=== PATIENT | female | born 1960 | race Caucasian/White ===

== ENCOUNTER 2019-03-27 11:38 | Day surgery (SDC) | payer BC ==
--- NOTE | 2019-03-18 09:25 | HP ---
CC: Dr. Wallace Martinez* ADMISSION HISTORY AND PHYSICAL: DATE OF ADMISSION: 03/27/19 ATTENDING SURGEON: Dr. Jesse Luo* (STACIA Cardenas dictating). CHIEF COMPLAINT: Gallstones. HISTORY OF PRESENT ILLNESS: This is a 58-year-old female, who beginning in October began to note intermittent episodes of right upper quadrant discomfort. These have increased in both frequency and intensity in recent months. She described a sharp pain in the right upper quadrant, which sometimes radiates to the back. It has not been associated with nausea or vomiting, fever or chills, or particular timing or type of food. She has noted some increased constipation of late. There is no family history of gallbladder disease. She did undergo gallbladder ultrasound on 02/21/19, which showed what appeared to be a single 1.2 cm gallstone without significant gallbladder wall thickening, pericholecystic fluid, or common bile duct dilation. She was seen by Dr. Luo on 03/07/19. He has reviewed her workup and discussed with her the indications, risks, benefits, and alternatives of surgery. She understands the expected perioperative course and would like to proceed as scheduled with laparoscopic cholecystectomy. PAST MEDICAL HISTORY: Hypertension and history of cardiomyopathy (followed regularly by Dr. Garrido with serial echocardiograms, most recently in 2014 showing stable and/or improved disease with no further Cardiology followup recommended at that time. Her estimated ejection fraction was 55% to 60% with echo showing mild- to-moderate LV hypertrophy with normal LV systolic function) . She has history of tobacco abuse with COPD and excess alcohol intake as well as obesity. PAST SURGICAL HISTORY: Her previous surgeries include x2 both via low transverse incision, D and C, cervical conization, and cardiac catheterization (see above). CURRENT MEDICATIONS: 1. Losartan 100 mg once daily. 2. Metoprolol succinate extended release 50 mg one and one-half tablets b.i.d. 3. Aspirin 81 mg once daily (the patient will hold after her 03/22/19 dose). 4. Spiriva 18 mcg 1 inhalation once daily. 5. Albuterol MDI 2 puffs p.r.n. (uses daily). DRUG ALLERGIES: AZITHROMYCIN EYE DROPS (local reaction only). FAMILY HISTORY: Negative for anesthesia problems, bleeding or clotting disorders. SOCIAL HISTORY: The patient is . 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 She is an up to 1 pack per day smoker for 30 plus years. She has failed numerous attempts to quit, though still has that goal. She drinks between 3 and 6 beers per night (I did discuss with her the health benefits of both smoking cessation as well as decreased alcohol intake). She denies use of any other recreational drugs. REVIEW OF SYSTEMS: General: No recent constitutional symptoms or acute illnesses other than described in the HPI. HEENT: No problems reported. Cardiovascular: As above with no recent Cardiology followup, though no symptoms of chest pain or shortness of breath above her baseline. She is treated for hypertension. Respiratory: No recent exacerbations of her COPD. She continues to smoke. GI: As above per HPI. No lower GI symptoms other than some slight increase in constipation. She has undergone screening colonoscopy in the past with removal of polyps. She believes she is due for a repeat exam. She has not had any interval symptoms of concern. : No problems reported. Endocrine : No thyroid dysfunction or diabetes. 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 Neuro/Psych: Left carpal tunnel syndrome, pending further evaluation and/or recommendation after recent nerve conduction study. PHYSICAL EXAMINATION GENERAL: Well-nourished, mildly obese female, in no acute distress. VITAL SIGNS: Height 66.5 inches, weight 200 pounds (BMI 31.8). Temperature 98.4, blood pressure 138/86, pulse 90, respirations 16. HEENT: Pupils are equal, round, and reactive. EOMs intact. No conjunctival pallor or scleral icterus. Oropharynx: Teeth in fair to good repair, some missing teeth. Mucous membranes moist. NECK: No lymphadenopathy, thyromegaly, or masses. LUNGS: Clear to auscultation. No rales or wheezes. HEART: Regular rate and rhythm. No murmur noted. BREASTS: Not examined. ABDOMEN: Soft. Mild right upper quadrant tenderness. Negative Man sign. No palpable masses or organomegaly. GENITALIA: Not done. RECTAL: Not done. BACK: No spinous process or CVA tenderness. EXTREMITIES: No edema. NEUROLOGICAL: Grossly intact. Specific testing not performed. SKIN: Warm and dry. No suspicious rashes or lesions. IMPRESSION: Symptomatic cholelithiasis. PLAN: Laparoscopic cholecystectomy. STACIA CARDENAS [id number]/[facility] #: [id number] [facility]
[~2019-03-27 11:38] MED LIST: Buffered Lidocaine 1% SYRIN* 1 ML/SYRINGE INTRADERM ONE; Dexamethasone IV* 4 MG/ML 1 ML (4 MG) IV SLOW PU ONE; Famotidine IV* 10 MG/ML 2 ML (20 mg) IV ONE; Lactated Ringers 1000 ML Bag* 1,000 ML IV SCH
[2019-03-27] MEDS ORDERED: Dexamethasone IV* 4 MG/ML 1 ML (4 MG) ONE (12:12)
[2019-03-27] MEDS ORDERED: ceFAZolin 2 GM PREMIX in ORs 2 GM/50 ML BAG IVPB ONE (12:12)
[2019-03-27] MEDS ORDERED: Buffered Lidocaine 1% SYRIN* 1 ML/SYRINGE INTRADERM ONE (12:13)
[2019-03-27] MEDS ORDERED: Famotidine IV* 10 MG/ML 2 ML (20 mg) ONE ×2 (12:13→12:31)
[2019-03-27] MEDS ORDERED: Midazolam* 1 MG/ML 2 ML VIAL (2 MG) ONE (13:30)
[2019-03-27] MEDS ORDERED: fentaNYL* 50 MCG/ML 2 ML VIAL (100 MCG VIAL) ONE ×3 (13:30→16:08)
[2019-03-27] MEDS ORDERED: Lidocaine 2% PF * 5 ML VIAL ONE (13:32)
[2019-03-27] MEDS ORDERED: Propofol* 10 MG/ML 20 ML BTL ONE (13:32)
[2019-03-27] MEDS ORDERED: Ondansetron INJ* 2 MG/ML VIAL ONE (13:32)
[2019-03-27] MEDS ORDERED: Ketorolac INJ* 30 MG/ML 1 ML VIAL ONE (13:32)
[2019-03-27] MEDS ORDERED: Bupivacaine 0.25% W/EPI* 10 ML SDV ONE (13:54)
[2019-03-27] MEDS ORDERED: Sugammadex * 200 MG/2 ML VIAL IV PUSH ONE (14:43)
[2019-03-27] MEDS ORDERED: Rocuronium* 10 MG/ML VIAL ONE (14:44)
[2019-03-27] MEDS ORDERED: KETAMINE HCL* 50 MG/ML 10 ML VIAL ONE (15:32)
--- NOTE | 2019-03-27 15:56 | OP ---
Operative Report - Blank - Operative Report Date of Operation: 03/27/19 Note: Brief Operative Note Preop Dx: symptomatic cholelithiasis Postop Dx: same Procedure: laparoscopic cholecystectomy Anesthesia: GET Surgeon: Valerio Wrapper Layer: STACIA Ramírez; WILL Man Fluids: 500 mL LR EBL: < 50 mL Specimen: Gall bladder Drains: none Findings: dictated
[2019-03-27] MEDS ORDERED: hydrALAZINE IV* 20 MG/ML VIAL IV SLOW PU PRN (16:11)
[2019-03-27] MEDS ORDERED: DiMENhydriNATE IV* 50 MG/ML VIAL IV PUSH PRN (16:11)
[2019-03-27] MEDS ORDERED: Naloxone* 0.4 MG/ML 1 ML VIAL IV PRN (16:11)
[2019-03-27] MEDS ORDERED: fentaNYL* 50 MCG/ML 2 ML VIAL (100 MCG VIAL) IV PRN (16:11)
[2019-03-27] MEDS ORDERED: HYDROcodone/ACETAMIN 5-325 MG* 1 TAB PO PRN (16:42)
[2019-03-27] MEDS ORDERED: HYDROcodone/ACETAMIN 5-325 MG* 1 TAB ONE (16:56)
[2019-03-27 18:24] VITALS: BP 121/88
--- NOTE | 2019-03-29 11:07 | OP ---
CC: Dr. Wallace [facility]; [facility] OPERATIVE REPORT: DATE OF OPERATION: 03/27/19 - [facility] DATE OF : 64 SURGEON: Jesse Luo MD LAMP REPLACER: STACIA Ramírez ANESTHESIOLOGIST: Dr. Cui. ANESTHESIA: General anesthesia. PRE-OP DIAGNOSIS: Symptomatic cholelithiasis. POST-OP DIAGNOSIS: Symptomatic cholelithiasis. OPERATIVE PROCEDURE: Laparoscopic cholecystectomy. ESTIMATED BLOOD LOSS: Less than 50 cc. FLUIDS: 500 cc. SPECIMENS: Gallbladder. DESCRIPTION OF PROCEDURE: The patient was identified in the preoperative area, marked, brought to the operating room, and placed on the operating room table in a supine position. Preoperative antibiotics were given. Sequential devices were placed on bilateral lower extremities. General anesthesia was induced. The patient's abdomen was prepped and draped in a standard surgical fashion and a time- out was performed. Umbilical incision was made. The skin folds were elevated and a Veress needle inserted into the abdominal cavity, which was then allowed to insufflate to a pressure of 15 mmHg. This was removed and then the 5-mm Optiview trocar was inserted at the same incision. Review of the abdomen showed normal-appearing bowel and liver. We then placed the table in reverse Trendelenburg right side up positioning and placed a 12-mm trocar in the subxiphoid area, two 5 mm along the right costal margin. Next the gallbladder was identified. Fundus was elevated anteriorly and with blunt dissection swept off duodenum. Once it was swept down, we could see the body of the gallbladder. The infundibular region was grasped and retracted towards the right lower quadrant giving us a critical view with good vision of common bile duct. Next, we took the peritoneum off the lateral aspect of the gallbladder and off the medial aspect of the gallbladder. We doubly clipped the cystic duct and cystic artery after isolating them and removed the gallbladder from the liver bed. I did puncture the gallbladder with the grasper that this was held and minimal bile leakage was noted without the stone. The gallbladder was then placed in an endoscopic retrieval bag an brought out thorough the subxiphoid port site, passed off as specimen. Next, we reviewed the abdomen. I placed a gauze in the abdomen to mop up a bit of the bile and removed the gauze and looked at the cystic duct stump, cystic artery stump; there was no bleeding or bile leak. Next, we put the patient back to neutral. Trocars were removed under direct vision and all 4 skin incisions were reapproximated with 4-0 Monocryl subcuticular sutures followed by Steri-Strips and sterile dressing. The patient tolerated the procedure well , was woken up in the OR and transferred to the PACU in stable condition. [id number]/[facility] #: [id number] [facility]ENTERLinsey
== END 2019-03-27 18:00 | disposition home or self-care (01) ==
LOC: OR 11:38
PROVIDERS: ATTEND Surgery
DX: K80.10 Calculus of gallbladder with chronic cholecystitis without obstruction (principal); I10 Essential (primary) hypertension; J44.9 Chronic obstructive pulmonary disease, unspecified; I42.9 Cardiomyopathy, unspecified; Z72.0 Tobacco use; E66.9 Obesity, unspecified; Z68.32 Body mass index [BMI] 32.0-32.9, adult
CPT/HCPCS: 88304; J0690; J1100; J1885; J2250; J2405; J2704; J3010

== ENCOUNTER 2019-03-29 10:07 | Emergency (ER) | payer BC ==
[2019-03-29] MEDS ORDERED: Ondansetron INJ* 2 MG/ML VIAL IV ONE (10:19)
[2019-03-29] MEDS ORDERED: NS 0.9% 1000 ML** 1,000 ML IV ONE (10:19)
--- OUTSIDE RECORDS SUMMARY | 2019-03-29 10:21 | XMS REPORT | Continuity of Care Document ---
:1960 External Reference #:[id number] Author Name Kirstie Anders Care Team Providers Name Role Phone Wallace Martinez MD Primary Care Physician Unavailable Payers Date Identification Numbers Payment Provider Subscriber Effective: 2013 Policy Number: [id number] BS Facets Blanca Casillas PayID: [id number] [address] [address] [place] [address] Advance Directives Description No Information Available Problems Active Problems Provider Date Cardiomyopathy, unspecified Gus Garrido M.D., [facility], [facility] Onset: 08/26/2015 Tobacco user Gus Garrido M.D., [facility], [facility] Onset: 10/29/2013 Essential hypertension Gus Garrido M.D., [facility] Onset: 10/29/2013 Primary cardiomyopathy Gus Garrido M.D., [facility], [facility] Onset: 10/29/2013 Family History Date Family Member(s) Observation Comments General Cancer Social History Type Date Description Comments Sex Unknown Marital Status Lives With Spouse 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 Use Currently consumes alcohol Tobacco Use Start: Unknown Patient is a current 1/2 pack per day smoker, smokes every day Recreational Drug Use Denies Drug Use Smoking Status Reviewed: 03/29/19 Patient is a current 1/2 pack per day smoker, smokes every day Exercise Type/Frequency Exercises sporadically Allergies, Adverse Reactions, Alerts Active Allergies Reaction Severity Comments Date Zithromax swelling Zithromax eye drops 10/29/2013 Medications Active Medications SIG Qnty Indications Ordering Date Provider Hydrocodone-Acetamin 1 or 2 tablets by 14taclif K80.10 Pao Hobbs, ophen mouth every 4-6 MD 5-325mg Tablets hours as needed for moderately severe pain Aspirin 1 po qd 100tabs Unknown 81mg Tablets Metoprolol Succinate 1 and 1/2 tabs po Wallace Martinez, ER bid MD 50mg Tablets ER 24HR Losartan Potassium 1 po qd Wallace Martinez, MD 100mg Tablets Spiriva Handihaler 1 unit inhalation Unknown daily 18mcg Capsules Albuterol Sulfate Inhale 2 Puffs By Unknown HFA Mouth Every 4 To 6 108(90Base) Hours as Needed mcg/Act Aerosol For Wheeze/Shortness Of Breath/Cough History Medications Furosemide 1/2 pill po daily 30tabs Gus Garrido, 09/25/2012 - 20mg M.DFunmi, FACC, Unknown Tablets FSCAI Xopenex HFA 1 puff qd Unknown - Unknown 45mcg/Act Aerosol Wellbutrin SR 1 by mouth bid Unknown - 100mg Unknown Tablets ER 12HR Depo-Provera intramuscular q3mon Unknown - Unknown 400mg/ml Suspension Albuterol Sulfate 1 application every 4 Unknown - hours as needed Unknown (2.5mg/3ML) 0.083% Nebulizer Immunizations Description No Information Available Vital Signs Date Vital Result Comment 03/29/2019 9:37am Heart Rate 90 /min BP Systolic Sitting 108 mmHg BP Diastolic Sitting 72 mmHg Respiratory Rate 18 /min Body Temperature 97.1 F 03/15/2019 1:01pm Height 66.5 inches 5'6.50" Weight 200.00 lb Heart Rate 90 /min BP Systolic Sitting 138 mmHg BP Diastolic Sitting 86 mmHg Respiratory Rate 16 /min Body Temperature 98.4 F BMI (Body Mass Index) 31.8 kg/m2 03/07/2019 1:29pm Height 66.5 inches 5'6.50" Weight 200.00 lb Heart Rate 80 /min BP Systolic 132 mmHg BP Diastolic 84 mmHg Respiratory Rate 18 /min Body Temperature 99.0 F BMI (Body Mass Index) 31.8 kg/m2 08/26/2015 2:15pm Height 66.5 inches 5'6.50" Weight 199.00 lb Heart Rate 94 /min 96 BP Systolic Sitting 122 mmHg right arm, reg cuff BP Diastolic Sitting 90 mmHg right arm, reg cuff BP Systolic Standing 120 mmHg right arm, reg cuff BP Diastolic Standing 90 mmHg right arm, reg cuff Respiratory Rate 20 /min BMI (Body Mass Index) 31.6 kg/m2 Ejection Fraction 55-60% 07/28/15 05/20/2015 2:14pm Height 66.5 inches 5'6.50" Weight 200.25 lb w/shoes Heart Rate 90 /min 100 BP Systolic Sitting 128 mmHg Ra reg cuff BP Diastolic Sitting 90 mmHg Ra reg cuff BP Systolic Standing 144 mmHg Ra reg cuff BP Diastolic Standing 100 mmHg Ra reg cuff Respiratory Rate 18 /min BMI (Body Mass Index) 31.8 kg/m2 Ejection Fraction 50 echo 01/31/12 08/12/2014 2:42pm Height 66.5 inches 5'6.50" Weight 181.00 lb Heart Rate 84 /min 96 BP Systolic Sitting 126 mmHg right arm, reg cuff BP Diastolic Sitting 86 mmHg right arm, reg cuff BP Systolic Standing 126 mmHg right arm, reg cuff BP Diastolic Standing 82 mmHg right arm, reg cuff Respiratory Rate 16 /min BMI (Body Mass Index) 28.8 kg/m2 10/29/2013 2:06pm Height 66.5 inches 5'6.50" Weight 184.00 lb Heart Rate 9296 /min BP Systolic Sitting 114 mmHg LA reg cuff BP Diastolic Sitting 88 mmHg LA reg cuff BP Systolic Standing 108 mmHg LA BP Diastolic Standing 82 mmHg LA Respiratory Rate 16 /min BMI (Body Mass Index) 29.3 kg/m2 Results Test Date Facility Test Result H/L Range Note Laboratory test 10/09/2012 [facility] B Type 26.0 pg/mL 0- [address] [place] [address] Peptide [phone] Basic Metabolic 10/09/2012 [facility] Sodium 136 mmol/L 133- [address] [place], [place] [id number] [phone] Potassium 4.2 mmol/L 3.5-5.0 Chloride 103 mmol/L 101-111 Co2 Carbon Dioxide 27.0 mmol/L 22-32 Anion Gap 6.0 mmol/L 2-11 Glucose 97 mg/dL 70-100 Blood Urea Nitrogen 19 mg/dL 6-24 Creatinine 0.80 mg/dL 0.50-1.40 BUN/Creatinine Ratio 23.8 High 8-20 Calcium 9.5 mg/dL 8.1-9.9 Egfr Non- 75.9 >60 Egfr 97.6 >60 1 Laboratory test 09/12/2012 [facility] Free T4 0.84 NG/ML 0.61 -1.[address] [place] [address] [phone] T4 7.5 g/mL 5.0-12.0 TSH (Thyroid Stimulating Horm) 1.56 MIU/ML 0.34-5.60 1 Because ethnic data is not always readily available, this report includes an eGFR for both -Americans and non- Americans. The National Kidney Disease Education Program (NKDEP) does not endorse the use of the MDRD equation for patients that are not between the ages of 18 and 70, are , have extremes of body size, muscle mass, or nutritional status, or are non- or non-. According to the National Kidney Foundation, irrespective of diagnosis, the stage of the disease is based on the level of kidney function: Stage Description GFR(mL/min/1.73 m(2)) 1 Kidney damage with normal or decreased GFR 90 2 Kidney damage with mild decrease in GFR 60-89 3 Moderate decrease in GFR 30-59 4 Severe decrease in GFR 15-29 5 Kidney failure <15 (or dialysis) Procedures Date Code Description Status 07/28/2015 14631 ECHO Transthorasic Realtime 2D W Doppler & Color Flow Hosp Completed 07/09/2015 64213 ECHO Transthorasic Realtime 2D W Doppler & Color Flow Hosp Completed 05/20/2015 77282 EKG Tracing & Interpretation Completed 08/12/2014 94185 EKG Tracing & Interpretation Completed 10/29/2013 59217 EKG Tracing & Interpretation Completed 05/09/2013 46446 EKG Tracing & Interpretation Completed 09/25/2012 55924 EKG Tracing & Interpretation Completed Encounters Type Date Location Provider Dx Diagnosis Office Visit 03/07/2019 [facility] Jesse Luo, K80.10 [facility]p [facility] J[facility], FACS gallbladder w chronic cholecyst w/o obstruction Office Visit 08/26/2015 [facility] Gus Garrido, I42.9 Cardiomyopathy, 2:20p [facility] AT [facility] Kathleen, FACC, unspecified FSCAI I10 Essential (primary) hypertension F17.210 Nicotine dependence, cigarettes, uncomplicated Office Visit 05/20/2015 2:40p [facility] Gus Garrido, 401.9 Hypertension Of [facility] AT [facility] M.D., [facility], Unspec FSCAI 425.4 Cardiomyopathy Other Prim 305.1 Tobacco Use Disorder Office Visit 08/12/2014 2:40p [place] [facility]arrido, 425.4 Cardiomyopathy Other [facility] Of M.Linsey., [facility], Prim [facility] AT [facility] FSCAI 401.9 Hypertension Unspec 305.1 Tobacco Use Disorder Office Visit 10/29/2013 2:00p [place] Gus [facility]arrido, 425.4 Cardiomyopathy Other Cardiology Of M.D., [facility], [facility] FSCAI 401.9 Hypertension Unspec 305.1 Tobacco Use Disorder Office Visit 05/09/2013 3:15p [place] [facility], 425.4 Cardiomyopathy Other Cardiology Of M.Linsey., [facility], [facility] FSCAI 401.9 Hypertension Unspec Office Visit 09/25/2012 3:15p [place] Gus Garrido 425.4 Cardiomyopathy Other Cardiology Of M.Linsey., [facility], [facility] FSCAI 401.9 Hypertension Unspec Plan of Treatment Future Appointment(s):04/04/2019 1:00 pm - STACIA Lindsay at [facility]03/29/2019 - Gael Sinclair MD, FACSR11.2 Nausea with vomiting, unspecifiedRecommendations:Go to the [facility] Calculus of gallbladder with chronic cholecystitis without oI42.9 Cardiomyopathy, [id number] Essential (primary) hypertension
--- OUTSIDE RECORDS SUMMARY | 2019-03-29 10:21 | XMS REPORT | Continuity of Care Document ---
:1960 External Reference #:[id number] Author Name Kirstie Anders Care Team Providers Name Role Phone Wallace Martinez MD Primary Care Physician Unavailable Payers Date Identification Numbers Payment Provider Subscriber Effective: 2013 Policy Number: [id number] BS Facets Blanca Casillas PayID: [id number] [address] [address] [place] [address] Advance Directives Description No Information Available Problems Active Problems Provider Date Cardiomyopathy, unspecified Gus Garrido M.D., [facility], [facility] Onset: 08/26/2015 Tobacco user Gus Garrido M.D., [facility] Onset: 10/29/2013 Essential hypertension Gus Garrido M.D., [facility] Onset: 10/29/2013 Primary cardiomyopathy Gus Garrido M.D., [facility] Onset: 10/29/2013 Family History Date Family Member(s) Observation Comments General Cancer Social History Type Date Description Comments Sex Unknown Marital Status 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 B Type 26.0 pg/mL 0- [address] [address] Peptide [phone] Basic Metabolic 10/09/2012 [facility] Sodium 136 mmol/L 133- [address] [place] [address] [phone] Potassium 4.2 mmol/L 3.5-5.0 Chloride 103 mmol/L 101-111 Co2 Carbon Dioxide 27.0 mmol/L 22-32 Anion Gap 6.0 mmol/L 2-11 Glucose 97 mg/dL 70-100 Blood Urea Nitrogen 19 mg/dL 6-24 Creatinine 0.80 mg/dL 0.50-1.40 BUN/Creatinine Ratio 23.8 High 8-20 Calcium 9.5 mg/dL 8.1-9.9 Egfr Non- 75.9 >60 Egfr 97.6 >60 1 Laboratory test 09/12/2012 [facility] Free T4 0.84 NG/ML 0.61 -1.[address] [place] [address] [phone] T4 7.5 g/mL 5.0-12.0 TSH (Thyroid Stimulating [...] dialysis) Procedures Date Code Description Status 07/28/2015 93721 ECHO Transthorasic Realtime 2D W Doppler & Color Flow Hosp Completed 07/09/2015 29118 ECHO Transthorasic Realtime 2D W Doppler & Color Flow Hosp Completed 05/20/2015 90687 EKG Tracing & Interpretation Completed 08/12/2014 63628 EKG Tracing & Interpretation Completed 10/29/2013 63696 EKG Tracing & Interpretation Completed 05/09/2013 12784 EKG Tracing & Interpretation Completed 09/25/2012 74673 EKG Tracing & Interpretation Completed Encounters Type Date Location Provider Dx Diagnosis Office Visit 03/07/2019 [facility] Jesse Luo, K80.10 [facility]p [facility]ARA, FACS gallbladder w chronic cholecyst w/o obstruction Office Visit 08/26/2015 [facility] Gus Garrido, I42.9 Cardiomyopathy, 2:20p [facility] AT [facility] M.DFunmi, FACC, unspecified FSCAI I10 Essential (primary) hypertension F17.210 Nicotine dependence, cigarettes, uncomplicated Office Visit 05/20/2015 2:40p [facility] Gus Garrido, 401.9 Hypertension Of 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 AT [facility] M.D., FAC, Unspec FSCAI 425.4 Cardiomyopathy Other Prim 305.1 Tobacco Use Disorder Office Visit 08/12/2014 2:40p [place] Garr[facility], 425.4 Cardiomyopathy Other Cardiology Of M.D., FACC, Prim 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 AT [facility] FSCAI 401.9 Hypertension Unspec 305.1 Tobacco Use Disorder Office Visit 10/29/2013 2:00p [place] Garrido, 425.4 Cardiomyopathy Other Cardiology Of M.D., FAC, Prim [facility] FSCAI 401.9 Hypertension Unspec 305.1 Tobacco Use Disorder Office Visit 05/09/2013 3:15p [place] Garrido, 425.4 Cardiomyopathy Other Cardiology Of M.D., [facility], Prim [facility] FSCAI 401.9 Hypertension Unspec Office Visit 09/25/2012 3:15p [place] Garrido, 425.4 Cardiomyopathy Other Cardiology Of M.D., [facility], Prim [facility] FSCAI 401.9 Hypertension Unspec Plan of Treatment Future Appointment(s):04/04/2019 1:00 pm - STACIA Lindsay at [facility]03/27/2019 7:30 am - Mala Ortiz NP at [facility]03/27/2019 7:30 am - Jesse Luo MD, FACS at [facility]03/15/2019 - Bari Ramírez, PAK80.10 Calculus of gallbladder with chronic cholecystitis without oNew Medication:Hydrocodone- Acetaminophen 5-325 mg - 1 or 2 tablets by mouth every 4-6 hours as needed for moderately severe painZ01.818 Encounter for other preprocedural examination
--- OUTSIDE RECORDS SUMMARY | 2019-03-29 10:21 | XMS REPORT | Continuity of Care Document ---
:1960 External Reference #:[id number] Author Name Kirstie Anders Care Team Providers Name Role Phone Wallace Martinez MD Primary Care Physician Unavailable Payers Date Identification Numbers Payment Provider Subscriber Effective: 2013 Policy Number: [id number] [employer] Blanca Casillas PayID: [id number] [address] [address] [place] [address] Advance Directives Description No Information Available Problems Active Problems Provider Date Cardiomyopathy, unspecified Gus Garrido M.D., [facility], [facility] Onset: 08/26/2015 Tobacco user Gus Garrido M.D., [facility] Onset: 10/29/2013 Essential hypertension Gus Garrido M.D., [facility], [facility] Onset: 10/29/2013 Primary cardiomyopathy Gus Garrido M.D., [facility] Onset: 10/29/2013 Family History Date Family Member(s) Observation Comments General Cancer Social History Type Date Description Comments Sex Unknown Marital Status Lives With Spouse Occupation [employer] ETOH Use Currently consumes alcohol Tobacco Use Start: Unknown Patient is a current 1/2 pack per day smoker, smokes every day Recreational Drug Use Denies Drug Use Smoking Status Reviewed: 03/07/19 Patient is a current 1/2 pack per day smoker, smokes every day Exercise Type/Frequency Exercises sporadically Allergies, Adverse Reactions, Alerts Active Allergies Reaction Severity Comments Date Zithromax swelling 10/29/2013 Medications Active Medications SIG Qnty Indications Ordering Date Provider Aspirin 1 po qd 100tabs Unknown 81mg Tablets Metoprolol 1 and 1/2 tabs po Wallace Martinez, Succinate ER bid MD 50mg Tablets ER 24HR Losartan Potassium 1 po qd Michelle Wallace, MD 100mg Tablets Spiriva Handihaler 1 unit inhalation Unknown daily 18mcg Capsules Albuterol Sulfate 1 application every Unknown 4 hours as needed (2.5mg/3ML) 0.083% Nebulizer History Medications Furosemide 1/2 pill po daily 30tabs Gus Harvinderviky, 09/25/2012 - 20mg M.D., FACC, FSCAI Unknown Tablets Xopenex HFA 1 puff qd Unknown - 45mcg/Act Unknown Aerosol Wellbutrin SR 1 by mouth bid Unknown - 100mg Unknown Tablets ER 12HR Depo-Provera intramuscular q3mon Unknown - 400mg/ml Unknown Suspension Immunizations Description No Information Available Vital Signs Date Vital Result Comment 03/07/2019 1:29pm Height 66.5 inches 5'6.50" Weight [...] Result H/L Range Note Laboratory test 10/09/2012 [facility] B Type 26.0 pg/mL 0- [address] [place] [address] Peptide [phone] Basic Metabolic 10/09/2012 [facility] Sodium 136 mmol/L 133- 145 Panel [address] [place] [address] [phone] Potassium 4.2 mmol/L 3.5-5.0 Chloride 103 mmol/L 101-111 Co2 Carbon Dioxide 27.0 mmol/L 22-32 Anion Gap 6.0 mmol/L 2-11 Glucose 97 mg/dL 70-100 Blood Urea Nitrogen 19 mg/dL 6-24 Creatinine 0.80 mg/dL 0.50-1.40 BUN/Creatinine Ratio 23.8 High 8-20 Calcium 9.5 mg/dL 8.1-9.9 Egfr Non- 75.9 >60 Egfr 97.6 >60 1 Laboratory test 09/12/2012 [facility] Free T4 0.84 NG/ML 0.61 -1.24 finding [address] [place] [address] [phone] T4 7.5 g/mL 5.0-12.0 TSH (Thyroid Stimulating [...] dialysis) Procedures Date Code Description Status 07/28/2015 22645 ECHO Transthorasic Realtime 2D W Doppler & Color Flow Hosp Completed 07/09/2015 31775 ECHO Transthorasic Realtime 2D W Doppler & Color Flow Hosp Completed 05/20/2015 99412 EKG Tracing & Interpretation Completed 08/12/2014 17973 EKG Tracing & Interpretation Completed 10/29/2013 96882 EKG Tracing & Interpretation Completed 05/09/2013 91454 EKG Tracing & Interpretation Completed 09/25/2012 24805 EKG Tracing & Interpretation Completed Encounters Type Date Location Provider Dx Diagnosis Office Visit 08/26/2015 [facility] Gus Garrido, I42.9 Cardiomyopathy, 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 [facility] [place]., FACC, unspecified FSCAI I10 Essential (primary) hypertension F17.210 Nicotine dependence, cigarettes, uncomplicated Office Visit 05/20/2015 2:40p [facility] Garrido, 401.9 Hypertension Of Revenue Director [place] [facility]., FACC, Unspec FSCAI 425.4 Cardiomyopathy Other Prim 305.1 Tobacco Use Disorder Office Visit 08/12/2014 2:40p Renzo Garrido 425.4 Cardiomyopathy Other Cardiology Of M.Linsey., FAC, Prim [facility] [place] [facility] FSCAI 401.9 Hypertension Unspec 305.1 Tobacco Use Disorder Office Visit 10/29/2013 2:00p Renzo Garrido 425.4 Cardiomyopathy Other Cardiology Of M.Linsey., FAC, Prim Revenue Director FSCAI 401.9 Hypertension Unspec 305.1 Tobacco Use Disorder Office Visit 05/09/2013 3:15p Renzo Garriod 425.4 Cardiomyopathy Other Cardiology Of M.Linsey., FAC, Prim Revenue Director FSCAI 401.9 Hypertension Unspec Office Visit 09/25/2012 3:15p Renzo Garrido 425.4 Cardiomyopathy Other Cardiology Of Kathleen, [facility], Prim Revenue Director FSCAI 401.9 Hypertension Unspec Plan of Treatment Future Appointment(s):04/04/2019 1:00 pm - STACIA Lindsay at [facility]03/15/2019 1:00 pm - STACIA Lindsay at [facility]03/27/2019 7:30 am - Mala Ortiz, DARWIN at [facility]03/27/2019 7:30 am - Jesse Luo MD, FACS at [facility]03/07/2019 - Jesse Luo MD, FACSK80.10 Calculus of gallbladder with chronic cholecystitis without oFollow up:operating room
[2019-03-29 10:37] LABS: ABS Basophils 0.1 10^3/ul (0-0.2); ABS Lymphocytes 1.4 10^3/ul (1.0-4.8); ABS Monocytes 0.9 10^3/ul (0-0.8); ABS Neutrophils 10.6 10^3/ul (1.5-7.7); Eosinophil % 0.3 %; Hematocrit 39 % (35-47); Hemoglobin 13.7 g/dL (12.0-16.0); Lymphocyte % 10.5 %; Mean Corpuscular HGB Conc 35 g/dL (31-36); Mean Corpuscular Hemoglobin 32 pg (27-31); Mean Corpuscular Volume 92 fL (80-97); Nucleated Red Blood Cells % 0.1; Platelet Count 384 10^3/uL (150-450); Red Blood Count 4.27 10^6 /uL (3.70-4.87); Red Cell Distribution Width 13 % (10.5-15)
--- NOTE | 2019-03-29 10:41 | ED ---
GI/ HPI - HPI Summary HPI Summary: This patient is a 58 year old F presenting to ED with a chief complaint of N/V since yesterday afternoon. The patient rates the pain 0/10 in severity. Symptoms aggravated by PO. Symptoms alleviated by nothing. She has not taken any pain medications since yesterday. She also states that she hasnt been in much pain at all. PMHx of cholecystectomy (done by Dr. Luo on 03/27/19). She was just seen by Dr. Luo and he sent her down to the ED. - History of Current Complaint Chief Complaint: EDNauseaVomitDiarrh Time Seen by Provider: 03/29/19 10:14 Stated Complaint: NAUSEA/CANT EAT/VOMITING PER PT Hx Obtained From: Patient Onset/Duration: Started Days Ago - yesterday afternoon, Still Present Timing: Constant, Lasting Days Current Severity: None Pain Intensity: 0 Associated Signs and Symptoms: Positive: Nausea, Vomiting, Other: - denies any pain Aggravating Factor(s): Food Alleviating Factor(s): Nothing - Allergy/Home Medications Allergies/Adverse Reactions: Allergies Allergy/AdvReac Type Severity Reaction Status Date / Time zithromax eye drops Allergy See Comment Uncoded 03/27/19 12:52 PMH/Surg Hx/FS Hx/Imm Hx Endocrine/Hematology History: Denies: Hx Diabetes Cardiovascular History: Reports: Hx Hypertension - ON DAILY MED Denies: Hx Congestive Heart Failure Comment Only: Other Cardiovascular Problems/Disorders - HX OF HEART CATH FEW YEARS AGO, ALL WAS OK Respiratory History: Reports: Other Respiratory Problems/Disorders - SMOKER, GETS SOB OCCASSIONALLY, USES INHALERS DAILY History: Denies: Hx Renal Disease Sensory History: Reports: Hx Contacts or Glasses - WILL WEAR GLASSES DAY OF SURGERY Opthamlomology History: Reports: Hx Contacts or Glasses - WILL WEAR GLASSES DAY OF SURGERY - Surgical History Surgery Procedure, Year, and Place: d/c [facility] [place]. 1998cervical cone laser ablation, [facility] [place]. 1989 & 1991 [facility] [place] [facility] Hx Anesthesia Reactions: No Infectious Disease History: No Infectious Disease History: Denies: Traveled Outside the [place] in Last 30 Days - Family History Known Family History: Positive: Other Family History: PE - mother - Social History Alcohol Use: Daily Alcohol Amount: USUALLY FEW DRINKS/ MOST EVENINGS Substance Use Type: Reports: None Smoking Status (MU): Heavy Every Day Tobacco Smoker Type: Cigarettes Amount Used/How Often: 1 PPD OR LESS 20 YRS Have You Smoked in the Last Year: Yes Review of Systems Positive: Other - denies any pain Positive: Vomiting, Nausea All Other Systems Reviewed And Are Negative: Yes Physical Exam - Summary Physical Exam Summary: VITAL SIGNS: Reviewed. GENERAL: Patient is a well-developed and nourished FEMALE who is lying comfortable in the stretcher. Patient is not in any acute respiratory distress. HEAD AND FACE: No signs of trauma. No ecchymosis, hematomas or skull depressions. No sinus tenderness. EYES: PERRLA, EOMI x 2, No injected conjunctiva, no nystagmus. EARS: Hearing grossly intact. Ear canals and tympanic membranes are within normal limits. MOUTH: Oral mucosa is dry. NECK: Supple, trachea is midline, no adenopathy, no JVD, no carotid bruit, no c- spine tenderness, neck with full ROM. CHEST: Symmetric, no tenderness at palpation LUNGS: Clear to auscultation bilaterally. No wheezing or crackles. CVS: Regular rate and rhythm, S1 and S2 present, no murmurs or gallops appreciated. ABDOMEN: Soft, non-tender. No signs of distention. No rebound no guarding, and no masses palpated. Bowel sounds are normal. EXTREMITIES: FROM in all major joints, no edema, no cyanosis or clubbing. NEURO: Alert and oriented x 3. No acute neurological deficits. Speech is normal and follows commands. SKIN: Dry and warm. Multiple small surgical scars which are with a little ecchymosis, without any signs of infection. Turgor of skin is increased. Triage Information Reviewed: Yes Vital Signs On Initial Exam: Initial Vitals Temp Pulse Resp BP Pulse Ox 97.6 F 110 16 105/79 97 03/29/19 10:08 03/29/19 10:08 03/29/19 10:08 03/29/19 10:08 03/29/19 10:08 Vital Signs Reviewed: Yes Diagnostics - Vital Signs Vital Signs Temp Pulse Resp BP Pulse Ox 03/29/19 10:08 97.6 F 110 16 105/79 97 - Laboratory Lab Results: Lab Results 03/29/19 Range/Units 10:30 WBC 13.0 H (3.5-10.8) 10^3/uL RBC 4.27 (3.70-4.87) 10^6 /uL Hgb 13.7 (12.0-16.0) g/dL Hct 39 (35-47) % MCV 92 (80-97) fL MCH 32 H (27-31) pg MCHC 35 (31-36) g/dL RDW 13 (10.5-15) % Plt Count 384 (150-450) 10^3/uL MPV 6.0 L (7.4-10.4) fL Neut % (Auto) 81.2 % Lymph % (Auto) 10.5 % [place] % (Auto) 7.3 % Eos % (Auto) 0.3 % Baso % (Auto) 0.7 % Absolute Neuts (auto) 10.6 H (1.5-7.7) 10^3/ul Absolute Lymphs (auto) 1.4 (1.0-4.8) 10^3/ul Absolute Monos (auto) 0.9 H (0-0.8) 10^3/ul Absolute Eos (auto) 0.0 (0-0.6) 10^3/ul Absolute Basos (auto) 0.1 (0-0.2) 10^3/ul Absolute Nucleated RBC 0.0 10^3/ul Nucleated RBC % 0.1 Result Diagrams: 03/29/19 10:30 03/29/19 10:30 Lab Statement: Any lab studies that have been ordered have been reviewed, and results considered in the medical decision making process. - Radiology Abd XR Radiology Interpretation Completed By: Radiologist Summary of Radiographic Findings: NONOBSTRUCTIVE BOWEL GAS PATTERN. LARGE AMOUNT OF STOOL THROUGHOUT THE COLON. Dr. Cuellar has reviewed this radiology report. Re-Evaluation - Re-Evaluation First Eval Re-Evaluation Time: 12:29 Change: Improved Comment: The patient is feeling better. Second Eval Re-Evaluation Time: 14:35 Comment: Discussed results with the patient and plan for discharge. Patient understands and agrees with this plan. GIGU Course/Dx - Course Assessment/Plan: This patient is a 58-year-old female who presents to the emergency department after the patient was seen by Dr. Sinclair from surgery and recommended to come to the ED since the patient is complaining of nausea and vomiting since last . She reports that on Monday she had a cholecystectomy done by Dr. Lou and she was doing okay until the next day when she developed the nausea and vomiting. She reports no significant pain and she is able to tolerate the pain. This patient has past medical history significant for COPD and hypertension. In the ED course the patient was placed in a secured entrance monitor, IV access was obtained. The patient started with IV fluids and Zofran for the nausea and vomiting. At approximately 12:30 PM: The patient reports that she hasnt had any nausea or vomiting. Therefore we gave IVF PO challenge. Afterwards, the patient did have any nausea and vomiting. The patient is feeling much better. Test results without any significant abnormality except for the WBC of 13, sodium 125, which is significantly decreased to her usual. However, the patient reports that her symptoms are resolved and she feels better. Therefore, I discussed my physical exam, findings and test results with and Dr. Sinclair and he recommends for the patient to be discharged home and follow up with Dr. Perez tomorrow morning at [address] Sinclair reports that Dr. Perez will check the sodium level tomorrow morning and do a further assessment for this patient. At this point the patient is hemodynamically stable alert oriented 3. The patient and agrees with the plan. I did send a prescription for Zofran for this patient. I discussed all the findings and test results with the patient. Patient was instructed to return to the emergency room immediately if any of the symptoms return worsens. Plan of care was discussed with the patient and understands and agrees. All questions were answered at patient satisfaction. There were no further complaints or concerns. Lung exam before discharge: CTA B/L. Good air exchange. No wheezing or crackles heard. CVS: S1 and S2 present. No murmurs appreciated. Patient is alert and oriented x 3. Patient is hemodynamically stable. Patient will be discharged home with follow up PCP in the next 2-3 days - Diagnoses Provider Diagnoses: Nausea and vomiting, Hyponatremia - Physician Notifications Discussed Care Of Patient With: Gael Sinclair Time Discussed With Above Provider: 13:36 Instructed by Provider To: Other - Consulted Dr. Sinclair about the patient's case and he will get in touch with Dr. Martinez, the patient's PCP, to see if he can do a repeat bloodwork tomorrow. Spoke with Dr. Sinclair at 1353 and he says he spoke to Dr. Perez who will test the sodium level tomorrow. They will call with a time for the appointment. Discharge - Sign-Out/Discharge Documenting (check all that apply): Patient Departure - discharge Patient Received Moderate/Deep Sedation with Procedure: No - Discharge Plan Condition: Stable Disposition: HOME Patient Education Materials: Acute Nausea and Vomiting (ED) Referrals: Anabell Perez MD [Medical Doctor] - (Follow up to see her tomorrow.) Additional Instructions: Follow up with Dr. Perez to see her tomorrow. Call the office tomorrow morning. RETURN TO THE ED FOR ANY WORSENING OR NEW SYMPTOMS. - Billing Disposition and Condition Condition: STABLE Disposition: Home - Attestation Statements Document Initiated by Severiano: Yes Documenting Scribe: Dagoberto Figueroa Provider For Whom Severiano is Documenting (Include Credential): Neel Cuellar MD Scribe Attestation: Dagoberto Chen, scribed for Neel Cuellar MD on 03/29/19 at 1848. Scribe Documentation Reviewed: Yes Provider Attestation: The documentation as recorded by the Dagoberto rincon accurately reflects the service I personally performed and the decisions made by , Neel Cuellar MD Status of Scribe Document: Viewed
[2019-03-29 11:03] LABS: Albumin 4.6 g/dL (3.2-5.2); Albumin/Globulin Ratio 1.4 (1-3); BUN/Creatinine Ratio 15.4 (8-20); C Reactive Protein 4.47 mg/L (<8.01); Calcium 9.9 mg/dL (8.6-10.3); EGFR African American 114.1 (>60); EGFR Non-African American 94.3 (>60); Globulin 3.2 g/dL (2-4); Potassium 4.1 mmol/L (3.5-5.0); Total Bilirubin 0.8 mg/dL (0.2-1.0); Total Protein 7.8 g/dL (6.4-8.9)
[2019-03-29 14:43] VITALS: BP 111/76
== END 2019-03-29 14:43 | disposition home or self-care (01) ==
LOC: ED 10:07
DX: R11.2 Nausea with vomiting, unspecified (principal); E87.1 Hypo-osmolality and hyponatremia; J44.9 Chronic obstructive pulmonary disease, unspecified; I10 Essential (primary) hypertension; F17.210 Nicotine dependence, cigarettes, uncomplicated
CPT/HCPCS: 36415; 74019; 80053; 83690; 85025; 86140; 96361; 96365; 96366; 99282; J2405

== ENCOUNTER 2020-05-31 09:24 | Inpatient (IN) ==
[2020-05-31] MEDS ORDERED: Ondansetron 4 mg VIAL 2 MG/ML 2 ml VIAL IV ONE (09:55)
[2020-05-31] MEDS ORDERED: NS 0.9% 1000 ml BAG 1,000 ML IV ONE (10:07)
[2020-05-31 10:49] LABS: ABS Lymphocytes 0.7 10^3/ul (1.0-4.8); ABS Monocytes 0.4 10^3/ul (0-0.8); ABS Neutrophils 7.6 10^3/ul (1.5-7.7); Eosinophil % 0.1 %; Hematocrit 48 % (35-47); Hemoglobin 16.6 g/dL (12.0-16.0); Lymphocyte % 7.8 %; Mean Corpuscular HGB Conc 35 g/dL (31-36); Mean Corpuscular Hemoglobin 33 pg (27-31); Mean Corpuscular Volume 94 fL (80-97); Mean Platelet Volume 6.3 fL (7.4-10.4); Nucleated Red Blood Cells % 0.1; Platelet Count 403 10^3/uL (150-450); Red Blood Count 5.08 10^6 /uL (3.70-4.87); Red Cell Distribution Width 13 % (10-15); White Blood Count 8.7 10^3/uL (3.5-10.8)
[2020-05-31 10:53] LABS: Urine Appearance Clear; Urine Bilirubin Negative (Negative); Urine Blood Negative (Negative); Urine Color Yellow; Urine Glucose 2+(150 mg/dL) (Negative); Urine Ketones 1+ (Negative); Urine Nitrite Negative (Negative); Urine Protein 2+(100 mg/dL) (Negative); Urine Specific Gravity 1.016 (1.010-1.030); Urine Urobilinogen Negative (Negative)
[2020-05-31 10:57] LABS: Urine Bacteria Absent (Absent); Urine Red Blood Cell 1+(3-5/hpf) (Absent); Urine Squamous Epithelial Cell Present (Absent); Urine White Blood Cell Trace(0-5/hpf) (Absent)
[2020-05-31 11:07] LABS: ALT 19 U/L (7-52); AST 19 U/L (13-39); Albumin 4.8 g/dL (3.2-5.2); Albumin/Globulin Ratio 1.5 (1-3); Alkaline Phosphatase 80 U/L (34-104); Anion Gap 7 mmol/L (2-11); BUN/Creatinine Ratio 13.2 (8-20); Blood Urea Nitrogen 7 mg/dL (6-24); C Reactive Protein 4.02 mg/L (<8.01); CO2 Carbon Dioxide 27 mmol/L (22-32); Chloride 88 mmol/L (101-111); EGFR African American 143.9 (>60); EGFR Non-African American 118.9 (>60); Globulin 3.2 g/dL (2-4); Glucose 163 mg/dL (70-100); Lipase 19 U/L (11.0-82.0); Potassium 4.4 mmol/L (3.5-5.0); Sodium 122 mmol/L (135-145)
[2020-05-31 11:14] LABS: HCG Pregnancy 1.67 mIU/mL
[2020-05-31 11:52] LABS: Alcohol, S < 10 mg/dL (<10)
[2020-05-31] MEDS ORDERED: Albuterol HFA INHALER 8 gm MDI INH PRN (16:17)
[2020-05-31] MEDS: Ondansetron ODT 4 mg TAB 4 MG TAB PO PRN (16:31)
[2020-05-31] MEDS: Enoxaparin 40 MG/0.4 ML SYR SUBCUT SCH (17:41)
[2020-05-31] MEDS ORDERED: hydrALAZINE 20 mg/ml 1 ML Vial IV IV SLOW PU PRN (23:43)
[2020-06-01] MEDS: hydrALAZINE 20 mg/ml 1 ML Vial IV IV SLOW PU PRN ×2 (00:11→16:31)
[2020-06-01] MEDS: Ondansetron ODT 4 mg TAB 4 MG TAB PO PRN ×2 (03:30→20:32)
[2020-06-01 06:28] LABS: ABS Eosinophils 0.1 10^3/ul (0-0.6); ABS Lymphocytes 1.1 10^3/ul (1.0-4.8); ABS Monocytes 0.7 10^3/ul (0-0.8); Eosinophil % 0.8 %; Hematocrit 45 % (35-47); Hemoglobin 16.2 g/dL (12.0-16.0); Lymphocyte % 13.7 %; Mean Corpuscular HGB Conc 36 g/dL (31-36); Mean Corpuscular Hemoglobin 33 pg (27-31); Mean Corpuscular Volume 93 fL (80-97); Mean Platelet Volume 6.3 fL (7.4-10.4); Platelet Count 406 10^3/uL (150-450); Red Blood Count 4.88 10^6 /uL (3.70-4.87); Red Cell Distribution Width 12 % (10-15); White Blood Count 7.8 10^3/uL (3.5-10.8)
[2020-06-01 06:34] LABS: BUN/Creatinine Ratio 18.4 (8-20); Calcium 9.1 mg/dL (8.6-10.3); EGFR African American 157.5 (>60); EGFR Non-African American 130.2 (>60); Potassium 4.1 mmol/L (3.5-5.0)
[2020-06-01] MEDS: FLUTICASONE/UMECLIDIN/VILANTER 1 PUFF MDI INH SCH (07:42)
[2020-06-01] MEDS: Aspirin EC 81 mg TAB.EC (enteric coated) PO SCH (08:22)
[2020-06-01] MEDS: Enoxaparin 40 MG/0.4 ML SYR SUBCUT SCH (16:42)
[2020-06-02] MEDS: FLUTICASONE/UMECLIDIN/VILANTER 1 PUFF MDI INH SCH (07:34)
[2020-06-02 09:25] LABS: BUN/Creatinine Ratio 16.1 (8-20); Calcium 8.9 mg/dL (8.6-10.3); EGFR African American 120.1 (>60); EGFR Non-African American 99.2 (>60); Potassium 3.9 mmol/L (3.5-5.0)
[2020-06-02 09:36] LABS: TSH Ultra Thyroid Stim Horm 3.06 mcIU/mL (0.34-5.60)
[2020-06-02] MEDS: Aspirin EC 81 mg TAB.EC (enteric coated) PO SCH (09:56)
[2020-06-02] MEDS ORDERED: NS 0.9% 1000 ml BAG 1,000 ML IV ONE (10:45)
[2020-06-02 16:32] LABS: BUN/Creatinine Ratio 18.9 (8-20); Calcium 8.8 mg/dL (8.6-10.3); EGFR African American 143.9 (>60); EGFR Non-African American 118.9 (>60); Potassium 3.7 mmol/L (3.5-5.0)
[2020-06-02] MEDS ORDERED: NS 0.9% 1000 ml BAG 1,000 ML IV SCH ×2 (17:30→19:30)
[2020-06-02] MEDS: Enoxaparin 40 MG/0.4 ML SYR SUBCUT SCH (18:17)
[2020-06-02] MEDS: Mometasone/Formoter 200/5 MDI INH SCH (19:37)
[2020-06-02] MEDS: SPIRIVA Respimat (tiotropium) 2.5 mcg/inh Inhaler INH SCH ×2 (22:25→22:30)
[2020-06-03 07:41] LABS: Calcium 8.6 mg/dL (8.6-10.3); Potassium 3.8 mmol/L (3.5-5.0)
[2020-06-03 07:44] LABS: ABS Eosinophils 0.1 10^3/ul (0-0.6); ABS Lymphocytes 1.3 10^3/ul (1.0-4.8); ABS Monocytes 0.9 10^3/ul (0-0.8); ABS Neutrophils 4.6 10^3/ul (1.5-7.7); Eosinophil % 1.8 %; Hematocrit 41 % (35-47); Hemoglobin 14.7 g/dL (12.0-16.0); Lymphocyte % 18.3 %; Mean Corpuscular HGB Conc 35 g/dL (31-36); Mean Corpuscular Hemoglobin 33 pg (27-31); Mean Corpuscular Volume 94 fL (80-97); Mean Platelet Volume 6.4 fL (7.4-10.4); Platelet Count 355 10^3/uL (150-450); Red Cell Distribution Width 12 % (10-15)
[2020-06-03 07:47] LABS: BUN/Creatinine Ratio 14.5 (8-20); EGFR African American 120.1 (>60); EGFR Non-African American 99.2 (>60)
[2020-06-03] MEDS: Mometasone/Formoter 200/5 MDI INH SCH (08:25)
[2020-06-03] MEDS: SPIRIVA Respimat (tiotropium) 2.5 mcg/inh Inhaler INH SCH (08:25)
[2020-06-03] MEDS: Aspirin EC 81 mg TAB.EC (enteric coated) PO SCH (08:39)
[2020-06-03 12:22] VITALS: BP 113/69
== END 2020-06-03 16:30 | disposition home or self-care (01) | DRG 424 ==
LOC: ED 09:24 → MED 09:24 → OBSVTOIN 12:07 → MED 13:37
PROVIDERS: ADMIT Internal Medicine; ATTEND Internal Medicine

== ENCOUNTER 2021-02-20 09:07 | Observation (INO) ==
[2021-02-20] MEDS ORDERED: Metoprolol Tartrate 5 mg VIAL 5 ml VIAL (1 mg/ml) IV ONE ×2 (09:30→11:44)
[2021-02-20] MEDS ORDERED: NS 0.9% 1000 ml BAG 1,000 ML IV ONE ×2 (09:30→12:47)
[2021-02-20] MEDS ORDERED: Ondansetron 4 mg VIAL 2 MG/ML 2 ml VIAL IV ONE (09:31)
[2021-02-20 09:56] LABS: ABS Eosinophils 0.1 10^3/ul (0-0.6); ABS Lymphocytes 0.8 10^3/ul (1.0-4.8); ABS Monocytes 0.3 10^3/ul (0-0.8); ABS Neutrophils 7.2 10^3/ul (1.5-7.7); Eosinophil % 0.7 %; Hematocrit 45 % (35-47); Hemoglobin 15.7 g/dL (12.0-16.0); Lymphocyte % 9.4 %; Mean Corpuscular HGB Conc 35 g/dL (31-36); Mean Corpuscular Hemoglobin 32 pg (27-31); Mean Corpuscular Volume 92 fL (80-97); Mean Platelet Volume 6.3 fL (7.4-10.4); Platelet Count 401 10^3/uL (150-450); Red Blood Count 4.85 10^6 /uL (3.70-4.87); Red Cell Distribution Width 12 % (10-15); White Blood Count 8.4 10^3/uL (3.5-10.8)
[2021-02-20 10:13] LABS: Albumin 4.7 g/dL (3.2-5.2); Albumin/Globulin Ratio 1.6 (1-3); BUN/Creatinine Ratio 16.7 (8-20); C Reactive Protein 4.86 mg/L (<8.01); Calcium 9.9 mg/dL (8.6-10.3); EGFR African American 140.3 (>60); Magnesium 1.7 mg/dL (1.9-2.7); Potassium 4.1 mmol/L (3.5-5.0); Total Bilirubin 0.9 mg/dL (0.2-1.0); Total Protein 7.7 g/dL (6.4-8.9)
[2021-02-20 10:14] LABS: Troponin I 0.01 ng/mL (<0.03)
[2021-02-20] MEDS ORDERED: Iohexol 300 (CONTRAST) 10 ML SDV IV ONE (10:17)
[2021-02-20] MEDS ORDERED: Magnesium Sulfate 2 gm BAG 2 GM/50 ML BAG IVPB ONE (10:36)
[2021-02-20] MEDS ORDERED: Ondansetron 4 mg VIAL 2 MG/ML 2 ml VIAL IV PRN (12:47)
[2021-02-20] MEDS ORDERED: Prochlorperazine 5 mg/ml 2 ml VIAL (10 mg) IV PRN (12:47)
[2021-02-20] MEDS ORDERED: hydrALAZINE 20 mg/ml 1 ML Vial IV IV SLOW PU ONE (12:48)
[2021-02-20] MEDS: Enoxaparin 40 MG/0.4 ML SYR SUBCUT SCH (13:37)
[2021-02-20] MEDS ORDERED: hydrALAZINE 20 mg/ml 1 ML Vial IV IV SLOW PU PRN (13:38)
[2021-02-20] MEDS ORDERED: Albuterol HFA INHALER 8 gm MDI INH PRN (15:59)
[2021-02-20] MEDS ORDERED: Polyethylene Glycol 3350 17 GM PACKET PO PRN (16:38)
[2021-02-20] MEDS ORDERED: Magnesium Hydroxide LIQ 30 ML UDC PO PRN (16:38)
[2021-02-20 17:22] LABS: BUN/Creatinine Ratio 13.2 (8-20); Calcium 8.9 mg/dL (8.6-10.3); EGFR African American 143.4 (>60); EGFR Non-African American 118.5 (>60); Potassium 4.4 mmol/L (3.5-5.0)
[2021-02-21 05:29] LABS: ABS Eosinophils 0.3 10^3/ul (0-0.6); ABS Lymphocytes 1.5 10^3/ul (1.0-4.8); ABS Monocytes 0.8 10^3/ul (0-0.8); ABS Neutrophils 5.6 10^3/ul (1.5-7.7); Eosinophil % 3.3 %; Hematocrit 44 % (35-47); Lymphocyte % 18.3 %; Mean Corpuscular HGB Conc 34 g/dL (31-36); Mean Corpuscular Hemoglobin 32 pg (27-31); Mean Corpuscular Volume 94 fL (80-97); Mean Platelet Volume 6.4 fL (7.4-10.4); Nucleated Red Blood Cells % 0.1; Platelet Count 396 10^3/uL (150-450); Red Blood Count 4.68 10^6 /uL (3.70-4.87); Red Cell Distribution Width 13 % (10-15); White Blood Count 8.3 10^3/uL (3.5-10.8)
[2021-02-21 05:47] LABS: BUN/Creatinine Ratio 15.5 (8-20); Calcium 9.4 mg/dL (8.6-10.3); EGFR African American 129.2 (>60); EGFR Non-African American 106.8 (>60)
[2021-02-21] MEDS ORDERED: Aspirin EC 81 mg TAB.EC (enteric coated) PO SCH (09:00)
[2021-02-21] MEDS ORDERED: FLUTICASONE/UMECLIDIN/VILANTER 1 PUFF MDI INH SCH (09:00)
[2021-02-21] MEDS: Enoxaparin 40 MG/0.4 ML SYR SUBCUT SCH (12:56)
[2021-02-21 14:52] VITALS: BP 118/63
== END 2021-02-21 14:55 | disposition home or self-care (01) ==
LOC: MED 09:07 → ED 09:07
PROVIDERS: ADMIT Hospitalist; ATTEND Internal Medicine

== ENCOUNTER 2023-11-21 14:57 | Inpatient (IN) ==
[2023-11-21] MEDS ORDERED: Albuterol/Ipratropium NEB.SOL (2.5/0.5 MG) 3 ML NEB.SOLN INH ONE ×2 (15:27→18:03)
[2023-11-21 15:48] LABS: ABS Basophils 0.1 10^3/uL (0.0-0.1); ABS Lymphocytes 0.6 10^3/uL (1.0-4.8); ABS Monocytes 0.9 10^3/uL (0.0-0.9); ABS Neutrophils 14.9 10^3/uL (1.5-7.6); ABS Nucleated RBC 0.01 10^3/ul; Hemoglobin 14.3 g/dL (11.5-14.3); Lymphocyte % 3.6 %; Mean Corpuscular Hemoglobin 31.1 pg (27-33); Mean Corpuscular Volume 91.4 fL (80-97); Mean Platelet Volume 6.5 fL (7.5-11.2); Platelet Count 322 10^3/uL (150-450); Red Blood Count 4.59 10^6/uL (3.63-4.92); Red Cell Distribution Width 13.4 % (12-17); White Blood Count 16.4 10^3/uL (3.8-11.8)
[2023-11-21 16:11] LABS: Albumin/Globulin Ratio 1.3 (1-3); C Reactive Protein 104.37 mg/L (<8.01); Calcium 9.2 mg/dL (8.6-10.3); Creatinine, Serum 0.58 mg/dL (0.51-0.95); Globulin 3.1 g/dL (2-4); Potassium 4.3 mmol/L (3.5-5.0); Total Bilirubin 0.6 mg/dL (0.2-1.0); Total Protein 7.1 g/dL (6.4-8.9); eGFR CKD-EPI 102.9 (>60)
[2023-11-21] MEDS ORDERED: cefTRIAXone 1 gm/50 mL D5W 1 GM/50 ML BAG IV ONE (16:15)
[2023-11-21 17:22] LABS: Erythrocyte Sed Rate 18 mm/Hr (0-29)
[2023-11-21] MEDS ORDERED: cefTRIAXone 1 GM Q24H (ADVAN) IVPB SCH (19:00)
[2023-11-21 19:07] LABS: High Sensitivity Troponin 1 Hr 10 pg/mL (<15)
[2023-11-21] MEDS: Azithromycin 500 mg/250 ml NS 500 MG/250 ML BAG IVPB SCH (22:29)
[2023-11-22] MEDS: Albuterol/Ipratropium NEB.SOL (2.5/0.5 MG) 3 ML NEB.SOLN INH PRN ×2 (05:09→11:35)
[2023-11-22] MEDS: Enoxaparin 40 MG/0.4 ML SYR SUBCUT SCH (05:09)
[2023-11-22] MEDS: Albuterol HFA INHALER 8 gm MDI INH PRN ×2 (05:09→11:01)
[2023-11-22 06:59] LABS: Hematocrit 41.1 % (35-45); Mean Corpuscular Hemoglobin 32.2 pg (27-33); Mean Corpuscular Hgb Conc 34.1 g/dL (31-36); Mean Corpuscular Volume 94.4 fL (80-97); Mean Platelet Volume 6.6 fL (7.5-11.2); Platelet Count 245 10^3/uL (150-450); Red Blood Count 4.36 10^6/uL (3.63-4.92); Red Cell Distribution Width 13.4 % (12-17); White Blood Count 14.6 10^3/uL (3.8-11.8)
[2023-11-22 07:10] LABS: Calcium 9.1 mg/dL (8.6-10.3); Creatinine, Serum 0.62 mg/dL (0.51-0.95); Magnesium 1.9 mg/dL (1.9-2.7); Potassium 4.3 mmol/L (3.5-5.0); eGFR CKD-EPI 101.3 (>60)
[2023-11-22] MEDS: NF:BUDESONIDE/GLYCOPYR/FORMOTEROL MDI (NF) INH SCH (07:27)
[2023-11-22] MEDS: Albuterol/Ipratropium NEB.SOL (2.5/0.5 MG) 3 ML NEB.SOLN INH SCH ×2 (13:13→20:10)
[2023-11-22] MEDS ORDERED: methylPREDNISolone SOD SUCC 40 mg/ml 1 ml VIAL IV ONE (16:00)
[2023-11-22] MEDS ORDERED: cefTRIAXone ADVAN VIAL 1 GM in NS 0.9% 50 ML 50 ML IV SCH (18:00)
[2023-11-22] MEDS: Azithromycin 500 mg/250 ml NS 500 MG/250 ML BAG IVPB SCH (20:54)
[2023-11-23 02:28] LABS: Urine Appearance Cloudy; Urine Bilirubin Negative (Negative); Urine Blood Negative (Negative); Urine Color Yellow; Urine Glucose Negative (Negative); Urine Ketones Negative (Negative); Urine Nitrite Negative (Negative); Urine Protein 1+(30 mg/dL) (Negative); Urine Specific Gravity 1.018 (1.002-1.030); Urine Urobilinogen Negative (Negative)
[2023-11-23 02:39] LABS: Urine Bacteria Absent (Absent); Urine Red Blood Cell Absent (Absent); Urine Squamous Epithelial Cell Present (Absent); Urine White Blood Cell Absent (Absent)
[2023-11-23] MEDS: Albuterol HFA INHALER 8 gm MDI INH PRN ×3 (04:30→15:40)
[2023-11-23] MEDS: Enoxaparin 40 MG/0.4 ML SYR SUBCUT SCH (05:33)
[2023-11-23] MEDS ORDERED: Albuterol/Ipratropium NEB.SOL (2.5/0.5 MG) 3 ML NEB.SOLN INH PRN (05:43)
[2023-11-23 07:04] LABS: ABS Lymphocytes 0.4 10^3/uL (1.0-4.8); ABS Monocytes 0.6 10^3/uL (0.0-0.9); ABS Neutrophils 10.2 10^3/uL (1.5-7.6); Hematocrit 40.5 % (35-45); Hemoglobin 13.5 g/dL (11.5-14.3); Lymphocyte % 3.8 %; Mean Corpuscular Hemoglobin 30.7 pg (27-33); Mean Corpuscular Hgb Conc 33.3 g/dL (31-36); Mean Corpuscular Volume 92.1 fL (80-97); Mean Platelet Volume 6.4 fL (7.5-11.2); Platelet Count 299 10^3/uL (150-450); Red Cell Distribution Width 13.2 % (12-17); White Blood Count 11.2 10^3/uL (3.8-11.8)
[2023-11-23 07:27] LABS: Calcium 9.3 mg/dL (8.6-10.3); Creatinine, Serum 0.51 mg/dL (0.51-0.95); Potassium 4.4 mmol/L (3.5-5.0); eGFR CKD-EPI 106.1 (>60)
[2023-11-23] MEDS: Albuterol/Ipratropium NEB.SOL (2.5/0.5 MG) 3 ML NEB.SOLN INH SCH ×5 (07:38→23:45)
[2023-11-23] MEDS: NF:BUDESONIDE/GLYCOPYR/FORMOTEROL MDI (NF) INH SCH ×2 (07:50→07:51)
[2023-11-23] MEDS ORDERED: Furosemide 20 mg/2 ml IV VIAL IV SLOW PU ONE ×3 (08:02→18:23)
[2023-11-23] MEDS ORDERED: Nitro 2% OINT (Nitroglycerin) 1 INCH/PAK TOPICAL ONE (08:57)
[2023-11-23] MEDS: methylPREDNISolone SOD SUCC 40 mg/ml 1 ml VIAL IV SCH ×2 (09:56→20:13)
[2023-11-23] MEDS ORDERED: Albuterol HFA INHALER 8 gm MDI INH SCH ×2 (11:00)
[2023-11-23] MEDS ORDERED: Albuterol/Ipratropium NEB.SOL (2.5/0.5 MG) 3 ML NEB.SOLN INH SCH ×2 (11:00)
[2023-11-23] MEDS: cefTRIAXone 1 gm/50 mL D5W 1 GM/50 ML BAG IV SCH (17:43)
[2023-11-23] MEDS: Azithromycin 500 mg/250 ml NS 500 MG/250 ML BAG IVPB SCH (20:39)
[2023-11-24] MEDS: Albuterol/Ipratropium NEB.SOL (2.5/0.5 MG) 3 ML NEB.SOLN INH SCH ×4 (03:01→16:48)
[2023-11-24] MEDS: Enoxaparin 40 MG/0.4 ML SYR SUBCUT SCH (05:11)
[2023-11-24] MEDS: Albuterol HFA INHALER 8 gm MDI INH PRN ×2 (06:12→16:48)
[2023-11-24 06:56] LABS: ABS Lymphocytes 0.6 10^3/uL (1.0-4.8); ABS Monocytes 0.7 10^3/uL (0.0-0.9); Hematocrit 41.5 % (35-45); Hemoglobin 13.9 g/dL (11.5-14.3); Lymphocyte % 5.4 %; Mean Corpuscular Hemoglobin 30.9 pg (27-33); Mean Corpuscular Hgb Conc 33.6 g/dL (31-36); Mean Corpuscular Volume 92.2 fL (80-97); Mean Platelet Volume 6.5 fL (7.5-11.2); Platelet Count 338 10^3/uL (150-450); Red Cell Distribution Width 13.1 % (12-17); White Blood Count 10.3 10^3/uL (3.8-11.8)
[2023-11-24] MEDS: Nitro 2% OINT (Nitroglycerin) 1 INCH/PAK TOPICAL ONE ×2 (07:08→10:54)
[2023-11-24 07:43] LABS: Calcium 9.6 mg/dL (8.6-10.3); Creatinine, Serum 0.47 mg/dL (0.51-0.95); eGFR CKD-EPI 108.2 (>60)
[2023-11-24 07:44] LABS: Potassium 4.4 mmol/L (3.5-5.0)
[2023-11-24] MEDS: NF:BUDESONIDE/GLYCOPYR/FORMOTEROL MDI (NF) INH SCH (09:14)
[2023-11-24] MEDS: methylPREDNISolone SOD SUCC 40 mg/ml 1 ml VIAL IV SCH ×2 (09:16→17:07)
[2023-11-24] MEDS ORDERED: Albuterol/Ipratropium NEB.SOL (2.5/0.5 MG) 3 ML NEB.SOLN INH PRN (17:01)
[2023-11-24] MEDS: cefTRIAXone 1 gm/50 mL D5W 1 GM/50 ML BAG IV SCH (17:49)
[2023-11-24] MEDS: hydrALAZINE 20 mg/ml 1 ML Vial IV IV SLOW PU PRN (18:47)
[2023-11-24] MEDS: Albuterol HFA INHALER 8 gm MDI INH SCH (21:18)
[2023-11-24] MEDS: Azithromycin 500 mg/250 ml NS 500 MG/250 ML BAG IVPB SCH (22:46)
[2023-11-25] MEDS: methylPREDNISolone SOD SUCC 40 mg/ml 1 ml VIAL IV SCH ×3 (00:33→17:02)
[2023-11-25] MEDS: Albuterol HFA INHALER 8 gm MDI INH SCH ×7 (00:40→23:05)
[2023-11-25] MEDS: hydrALAZINE 20 mg/ml 1 ML Vial IV IV SLOW PU PRN (03:50)
[2023-11-25] MEDS: Enoxaparin 40 MG/0.4 ML SYR SUBCUT SCH (06:40)
[2023-11-25 07:34] LABS: ABS Lymphocytes 0.6 10^3/uL (1.0-4.8); ABS Monocytes 0.6 10^3/uL (0.0-0.9); Hemoglobin 14.1 g/dL (11.5-14.3); Lymphocyte % 7.5 %; Mean Corpuscular Hemoglobin 31.5 pg (27-33); Mean Corpuscular Hgb Conc 33.6 g/dL (31-36); Mean Corpuscular Volume 93.8 fL (80-97); Mean Platelet Volume 6.4 fL (7.5-11.2); Platelet Count 306 10^3/uL (150-450); Red Blood Count 4.48 10^6/uL (3.63-4.92); White Blood Count 8.2 10^3/uL (3.8-11.8)
[2023-11-25 07:37] LABS: Calcium 9.5 mg/dL (8.6-10.3); Creatinine, Serum 0.42 mg/dL (0.51-0.95); Magnesium 2.1 mg/dL (1.9-2.7); Potassium 4.7 mmol/L (3.5-5.0); eGFR CKD-EPI 111.2 (>60)
[2023-11-25] MEDS: NF:BUDESONIDE/GLYCOPYR/FORMOTEROL MDI (NF) INH SCH ×3 (08:35→20:57)
[2023-11-25] MEDS: cefTRIAXone 1 gm/50 mL D5W 1 GM/50 ML BAG IV SCH (17:07)
[2023-11-25] MEDS: Azithromycin 500 mg/250 ml NS 500 MG/250 ML BAG IVPB SCH (21:23)
[2023-11-26] MEDS: Enoxaparin 40 MG/0.4 ML SYR SUBCUT SCH ×2 (00:30→09:35)
[2023-11-26] MEDS: methylPREDNISolone SOD SUCC 40 mg/ml 1 ml VIAL IV SCH ×3 (01:19→17:42)
[2023-11-26] MEDS: hydrALAZINE 20 mg/ml 1 ML Vial IV IV SLOW PU PRN ×2 (02:09→06:39)
[2023-11-26] MEDS: Albuterol HFA INHALER 8 gm MDI INH SCH ×2 (03:50→07:56)
[2023-11-26] MEDS: NF:BUDESONIDE/GLYCOPYR/FORMOTEROL MDI (NF) INH SCH ×2 (05:59→20:53)
[2023-11-26] MEDS ORDERED: Albuterol HFA INHALER 8 gm MDI INH PRN (09:07)
[2023-11-26] MEDS ORDERED: Magnesium Sulfate 2 gm BAG 2 GM/50 ML BAG IVPB ONE (10:25)
[2023-11-26 10:35] LABS: ABS Lymphocytes 0.9 10^3/uL (1.0-4.8); ABS Neutrophils 10.9 10^3/uL (1.5-7.6); ABS Nucleated RBC 0.01 10^3/ul; Hemoglobin 13.9 g/dL (11.5-14.3); Lymphocyte % 6.9 %; Mean Corpuscular Hemoglobin 31.1 pg (27-33); Mean Corpuscular Hgb Conc 33.8 g/dL (31-36); Mean Corpuscular Volume 91.8 fL (80-97); Mean Platelet Volume 6.4 fL (7.5-11.2); Nucleated Red Blood Cells % 0.1 %/100WBC (0.0-0.8); Platelet Count 374 10^3/uL (150-450); Red Blood Count 4.47 10^6/uL (3.63-4.92); Red Cell Distribution Width 12.9 % (12-17); White Blood Count 12.8 10^3/uL (3.8-11.8)
[2023-11-26 10:57] LABS: Calcium 9.7 mg/dL (8.6-10.3); Creatinine, Serum 0.5 mg/dL (0.51-0.95); Magnesium 2.1 mg/dL (1.9-2.7); Potassium 4.3 mmol/L (3.5-5.0); eGFR CKD-EPI 106.6 (>60)
[2023-11-26] MEDS: Albuterol/Ipratropium NEB.SOL (2.5/0.5 MG) 3 ML NEB.SOLN INH SCH ×5 (11:45→22:59)
[2023-11-26 19:53] LABS: PCO2 Arterial 56 mmHg (35-45); PO2 Arterial 60 mmHg (80-100)
[2023-11-27] MEDS: methylPREDNISolone SOD SUCC 40 mg/ml 1 ml VIAL IV SCH ×3 (01:24→17:31)
[2023-11-27] MEDS: hydrALAZINE 20 mg/ml 1 ML Vial IV IV SLOW PU PRN (02:35)
[2023-11-27] MEDS: Albuterol/Ipratropium NEB.SOL (2.5/0.5 MG) 3 ML NEB.SOLN INH SCH ×5 (03:37→19:49)
[2023-11-27 06:24] LABS: ABS Basophils 0.1 10^3/uL (0.0-0.1); ABS Lymphocytes 0.5 10^3/uL (1.0-4.8); ABS Monocytes 0.6 10^3/uL (0.0-0.9); ABS Neutrophils 10.5 10^3/uL (1.5-7.6); Hematocrit 41.6 % (35-45); Hemoglobin 13.9 g/dL (11.5-14.3); Lymphocyte % 4.6 %; Mean Corpuscular Hemoglobin 30.6 pg (27-33); Mean Corpuscular Hgb Conc 33.3 g/dL (31-36); Mean Corpuscular Volume 91.9 fL (80-97); Mean Platelet Volume 6.4 fL (7.5-11.2); Platelet Count 389 10^3/uL (150-450); Red Blood Count 4.53 10^6/uL (3.63-4.92); Red Cell Distribution Width 13.2 % (12-17); White Blood Count 11.7 10^3/uL (3.8-11.8)
[2023-11-27 07:36] LABS: Calcium 9.5 mg/dL (8.6-10.3); Creatinine, Serum 0.47 mg/dL (0.51-0.95); Magnesium 2.3 mg/dL (1.9-2.7); Potassium 4.8 mmol/L (3.5-5.0); eGFR CKD-EPI 108.2 (>60)
[2023-11-27] MEDS: Enoxaparin 40 MG/0.4 ML SYR SUBCUT SCH (08:50)
[2023-11-27] MEDS ORDERED: guaiFENesin/CODIENE 100mg/10mg 5 ML UDC PO PRN (13:04)
[2023-11-27] MEDS: NF:BUDESONIDE/GLYCOPYR/FORMOTEROL MDI (NF) INH SCH (17:31)
[2023-11-27] MEDS ORDERED: Albuterol/Ipratropium NEB.SOL (2.5/0.5 MG) 3 ML NEB.SOLN INH PRN (20:13)
[2023-11-28] MEDS: methylPREDNISolone SOD SUCC 40 mg/ml 1 ml VIAL IV SCH ×3 (01:48→21:11)
[2023-11-28 06:29] LABS: ABS Lymphocytes 0.6 10^3/uL (1.0-4.8); ABS Monocytes 0.5 10^3/uL (0.0-0.9); ABS Neutrophils 11.5 10^3/uL (1.5-7.6); Hematocrit 41.4 % (35-45); Hemoglobin 14.1 g/dL (11.5-14.3); Lymphocyte % 4.5 %; Mean Corpuscular Hemoglobin 31.1 pg (27-33); Mean Corpuscular Hgb Conc 34.1 g/dL (31-36); Mean Corpuscular Volume 91.1 fL (80-97); Mean Platelet Volume 6.4 fL (7.5-11.2); Platelet Count 434 10^3/uL (150-450); Red Blood Count 4.55 10^6/uL (3.63-4.92); Red Cell Distribution Width 13.5 % (12-17); White Blood Count 12.6 10^3/uL (3.8-11.8)
[2023-11-28 06:47] LABS: Calcium 9.4 mg/dL (8.6-10.3); Creatinine, Serum 0.5 mg/dL (0.51-0.95); Magnesium 2.2 mg/dL (1.9-2.7); Potassium 4.8 mmol/L (3.5-5.0); eGFR CKD-EPI 106.6 (>60)
[2023-11-28] MEDS ORDERED: Magnesium Hydroxide LIQ 30 ML UDC PO PRN (07:09)
[2023-11-28] MEDS: NF:BUDESONIDE/GLYCOPYR/FORMOTEROL MDI (NF) INH SCH ×3 (07:37→19:32)
[2023-11-28] MEDS: Polyethylene Glycol 3350 17 GM PACKET PO SCH ×2 (10:18→14:59)
[2023-11-28] MEDS: Magnesium Hydroxide LIQ 30 ML UDC PO SCH ×2 (10:19→21:19)
[2023-11-28] MEDS: Enoxaparin 40 MG/0.4 ML SYR SUBCUT SCH (10:19)
[2023-11-28] MEDS ORDERED: Furosemide 40 mg/4 ml IV VIAL IV SLOW PU ONE (14:30)
[2023-11-28] MEDS: Senna TAB 8.6 mg TAB PO SCH (21:19)
[2023-11-29] MEDS: Enoxaparin 40 MG/0.4 ML SYR SUBCUT SCH (09:01)
[2023-11-29] MEDS: Polyethylene Glycol 3350 17 GM PACKET PO SCH ×2 (09:02→14:55)
[2023-11-29] MEDS: Magnesium Hydroxide LIQ 30 ML UDC PO SCH ×2 (09:03→21:45)
[2023-11-29] MEDS: NF:BUDESONIDE/GLYCOPYR/FORMOTEROL MDI (NF) INH SCH (09:03)
[2023-11-29 09:49] LABS: Hematocrit 44.7 % (35-45); Mean Corpuscular Hemoglobin 30.8 pg (27-33); Mean Corpuscular Hgb Conc 33.5 g/dL (31-36); Mean Corpuscular Volume 91.9 fL (80-97); Mean Platelet Volume 6.4 fL (7.5-11.2); Platelet Count 452 10^3/uL (150-450); Red Blood Count 4.86 10^6/uL (3.63-4.92); Red Cell Distribution Width 13.5 % (12-17); White Blood Count 14.1 10^3/uL (3.8-11.8)
[2023-11-29 10:16] LABS: ABS Lymphocytes 1.2 10^3/uL (1.0-4.8); ABS Monocytes 1.1 10^3/uL (0.0-0.9); ABS Neutrophils 11.7 10^3/uL (1.5-7.6); ABS Nucleated RBC 0.02 10^3/ul; Calcium 9.5 mg/dL (8.6-10.3); Creatinine, Serum 0.65 mg/dL (0.51-0.95); Eosinophil % 0.2 %; Lymphocyte % 8.4 %; Magnesium 2.4 mg/dL (1.9-2.7); Nucleated Red Blood Cells % 0.1 %/100WBC (0.0-0.8); Potassium 4.7 mmol/L (3.5-5.0); eGFR CKD-EPI 100.1 (>60)
[2023-11-29] MEDS: methylPREDNISolone SOD SUCC 40 mg/ml 1 ml VIAL IV SCH ×2 (11:49→21:48)
[2023-11-29] MEDS: Senna TAB 8.6 mg TAB PO SCH (21:45)
[2023-11-30] MEDS: NF:BUDESONIDE/GLYCOPYR/FORMOTEROL MDI (NF) INH SCH ×2 (06:00→09:50)
[2023-11-30] MEDS: methylPREDNISolone SOD SUCC 40 mg/ml 1 ml VIAL IV SCH (10:12)
[2023-11-30] MEDS: Enoxaparin 40 MG/0.4 ML SYR SUBCUT SCH (10:18)
[2023-11-30] MEDS: Magnesium Hydroxide LIQ 30 ML UDC PO SCH (10:19)
[2023-11-30] MEDS: Polyethylene Glycol 3350 17 GM PACKET PO SCH (10:19)
[2023-11-30 11:30] LABS: ABS Basophils 0.1 10^3/uL (0.0-0.1); ABS Lymphocytes 1.1 10^3/uL (1.0-4.8); ABS Monocytes 1.2 10^3/uL (0.0-0.9); ABS Neutrophils 18.6 10^3/uL (1.5-7.6); ABS Nucleated RBC 0.01 10^3/ul; Hematocrit 43.2 % (35-45); Hemoglobin 14.3 g/dL (11.5-14.3); Lymphocyte % 5.4 %; Mean Corpuscular Hemoglobin 30.6 pg (27-33); Mean Corpuscular Hgb Conc 33.2 g/dL (31-36); Mean Corpuscular Volume 92.3 fL (80-97); Mean Platelet Volume 6.6 fL (7.5-11.2); Platelet Count 451 10^3/uL (150-450); Red Blood Count 4.68 10^6/uL (3.63-4.92); Red Cell Distribution Width 13.7 % (12-17)
[2023-11-30 11:46] LABS: Calcium 9.4 mg/dL (8.6-10.3); Creatinine, Serum 0.69 mg/dL (0.51-0.95); Magnesium 2.2 mg/dL (1.9-2.7); Potassium 4.6 mmol/L (3.5-5.0); eGFR CKD-EPI 98.7 (>60)
[2023-11-30 14:18] VITALS: BP 105/68
== END 2023-11-30 16:40 | disposition home or self-care (01) | DRG 720 ==
LOC: ED 14:57 → EDHOLD 18:54 → MED 18:54 → SUATTDRO 18:54 → MED 11-22 11:58
PROVIDERS: ADMIT Internal Medicine; ATTEND Student in an Organized Health Care Education/Training Program